=== PATIENT | male | born 1960 | race Caucasian/White ===

== ENCOUNTER → 2016-10-12 | Outpatient (CLI) | payer OTHER ==
[2015-05-30 23:30] VITALS: BP 194/97
[~2016-10-12] MED LIST: AMOX1TAB61 PO; DEXL60CA2 PO; DICL25CA PO; FURO-69 PO; INSU100I13 SQ; IOHEXOL 240 MG/ML 50ML VIAL. PO ONE; IOHEXOL 300 MG/ML 100ML VIAL. IV ONE; LORA1TAB PO; SERT100T PO; TIZA4CAP3 PO; VALS1TAB14 PO
--- NOTE | 2016-10-12 10:17 | KCIC ---
PQRS Compliance Statement: One or more of the following individualized dose reduction techniques were utilized for this examination: 1. Automated exposure control 2. Adjustment of the mA and/or kV according to patient size 3. Use of iterative reconstruction technique CT ABD PELV W/ORAL IV CONTRAST Clinical Indication: Diarrhea, abdominal pain x4 days. History of pancreatitis. Comparison: CT abdomen and pelvis with contrast the tumor 2013. Technique: Helical CT imaging of the abdomen and pelvis is performed after 100 cc Omnipaque 300 IV contrast. Oral contrast also given. Findings: Lung bases are clear. Cardiac size normal. Mild hepatosplenomegaly. Supraumbilical ventral hernia mesh. Gallbladder, pancreas, adrenal glands, abdominal aorta, and kidneys are normal. Stomach unremarkable. No dilated small bowel. No colon wall thickening. No secondary signs of appendicitis. Unchanged from prior study there is mild haziness of the central mesentery with several upper limits of normal in size mesenteric lymph nodes. No abdominal or pelvic free fluid. Urinary bladder is normal. Prostate size normal. Tiny fat-containing left inguinal hernia. No acute bone abnormality. IMPRESSION: 1. No acute abdominal or pelvic abnormality. 2. Similar appearance of haziness of the central mesentery with scattered mesenteric lymph nodes. Finding can be incidental. Other considerations include sclerosing mesenteritis or sequela of prior pancreatitis or peritonitis. 3. Mild hepatosplenomegaly. Electronically signed by: Carlos Zavala MD (10/12/2016 10:14 AM)
== END | disposition home or self-care (01) ==
LOC: KCIC CT 08:01
PROVIDERS: ATTEND Family Medicine
DX: R16.2 Hepatomegaly with splenomegaly, not elsewhere classified (principal); I10 Essential (primary) hypertension; F17.200 Nicotine dependence, unspecified, uncomplicated; E11.9 Type 2 diabetes mellitus without complications
CPT/HCPCS: 74177; 82565; Q9966; Q9967

== ENCOUNTER 2016-12-09 01:22 | Emergency (ER) | payer OTHER ==
[~2016-12-09] VITALS: Ht 172.7 cm; Wt 133.8 kg
[~2016-12-09 01:22] MED LIST changes: -IOHEXOL 240 MG/ML 50ML VIAL. PO ONE; -IOHEXOL 300 MG/ML 100ML VIAL. IV ONE
[2016-12-09] MEDS ORDERED: IV NORMAL SALINE 1000ML BAG 1,000 ML IV SCH (01:30)
--- NOTE | 2016-12-09 01:38 | PHYS DOC ---
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 He states he is feeling fine today and then at 1800 p.m. he developed right flank pain. It has been constant. It's at least a 7 on a pain scale. He notes his urine was darker today. He has had 4-5 moderately formed stools, no blood. No fevers. Pain is been constant still sometimes radiate to the right lower abdomen. No testicular pain or swelling. No nausea or vomiting. Denies any recent heavy lifting or trauma. Said no recent travel. No old records available here. Review of Systems Review of Systems Constitutional: Denies fever or chills Eyes: Denies change in visual acuity, redness, or eye pain HENT: Denies nasal congestion or sore throat Respiratory: Denies cough or shortness of breath Cardiovascular: No chest pain. GI: see HPI : Denies dysuria or hematuria but urine darker today Musculoskeletal: right back pain Integument: Denies rash or skin lesions Neurologic: Denies headache, focal weakness or sensory changes Current Medications Current Medications Current Medications Medications (Trade) Dose Ordered Sig/Charlie Start Time Stop Time Status Last Admin Dose Admin Hydromorphone HCl (Dilaudid) 1 mg PRN Q15MIN PRN 12/09/16 01:30 12/10/16 01:29 12/09/16 02:10 1 MG Ondansetron HCl (Zofran) 4 mg PRN Q6HRS PRN 12/09/16 01:45 12/09/16 01:48 4 MG Sodium Chloride 1,000 ml @ 1,000 mls/hr Q1H 12/09/16 01:30 12/09/16 02:29 DC 12/09/16 02:38 1,000 MLS/HR Allergies Allergies Allergies Coded Allergies Type Severity Reaction Last Updated Verified cephalexin Allergy Mild HIVES 12/09/16 Yes Physical Exam Physical Exam Constitutional: Well developed, well nourished, no acute distress, non-toxic appearance. He is yelling out with spasms of pain. He drove himself here. HENT: Normocephalic, atraumatic, bilateral external ears normal, oropharynx moist, no oral exudates, nose normal. Eyes: PERRLA, EOMI, conjunctiva normal, no discharge. Neck: Normal range of motion, no tenderness, supple, no stridor. Cardiovascular:Heart rate regular rhythm, no murmur Lungs & Thorax: Bilateral breath sounds clear to auscultation Abdomen: Bowel sounds normal, soft, no tenderness, no masses, no pulsatile masses. Skin: Warm, dry, no erythema, no rash. Back: No tenderness, no CVA tenderness. Nontender over flank area. Extremities: No tenderness, no cyanosis, no clubbing, ROM intact, no edema. Neurologic: Alert and oriented X 3, normal motor function, normal sensory function, no focal deficits noted. [] Psychologic: Affect normal, judgement normal, mood normal. Current Patient Data Vital Signs Vital Signs Date Time Temp Pulse Resp B/P (MAP) Pulse Ox O2 Delivery O2 Flow Rate FiO2 12/09/16 02:37 20 96 Room Air 12/09/16 01:31 98.6 68 172/109 (130) 98.6 Lab Values Laboratory Tests Test 12/09/16 01:34 White Blood Count 10.7 x10^3/uL (4.0-11.0) Red Blood Count 5.77 x10^6/uL (4.30-5.70) H Hemoglobin 15.1 g/dL (13.0-17.5) Hematocrit 46.0 % (39.0-53.0) Mean Corpuscular Volume 80 fL (79-100) Mean Corpuscular Hemoglobin 26 pg (25-35) Mean Corpuscular Hemoglobin Concent 33 g/dL (31-37) Red Cell Distribution Width 15.9 % (11.5-14.5) H Platelet Count 230 x10^3/uL (140-400) Neutrophils (%) (Auto) 64 % (31-73) Lymphocytes (%) (Auto) 24 % (24-48) Monocytes (%) (Auto) 8 % (0-9) Eosinophils (%) (Auto) 3 % (0-3) Basophils (%) (Auto) 1 % (0-3) Neutrophils # (Auto) 6.9 x10^3uL (1.8-7.7) Lymphocytes # (Auto) 2.6 x10^3/uL (1.0-4.8) Monocytes # (Auto) 0.9 x10^3/uL (0.0-1.1) Eosinophils # (Auto) 0.3 x10^3/uL (0.0-0.7) Basophils # (Auto) 0.1 x10^3/uL (0.0-0.2) Sodium Level 140 mmol/L (136-145) Potassium Level 4.2 mmol/L (3.5-5.1) Chloride Level 101 mmol/L (98-107) Carbon Dioxide Level 33 mmol/L (21-32) H Anion Gap 6 (6-14) Blood Urea Nitrogen 25 mg/dL (8-26) Creatinine 1.2 mg/dL (0.7-1.3) Estimated GFR (Cockcroft-Gault) 62.2 BUN/Creatinine Ratio 21 (6-20) H Glucose Level 184 mg/dL (70-99) H Calcium Level 9.3 mg/dL (8.5-10.1) Total Bilirubin 0.2 mg/dL (0.2-1.0) Aspartate Amino Transferase (AST) 18 U/L (15-37) Alanine Aminotransferase (ALT) 31 U/L (16-63) Alkaline Phosphatase 73 U/L (46-116) Total Protein 7.4 g/dL (6.4-8.2) Albumin 3.9 g/dL (3.4-5.0) Albumin/Globulin Ratio 1.1 (1.0-1.7) Laboratory Tests 12/09/16 01:34 Laboratory Tests 12/09/16 01:34 Radiology/Procedures Radiology[facility]ced[facility] [address] [place], [place] [id number] IMAGING REPORT Signed PATIENT: JOSE CHAPA ACCOUNT: [id number] : 1960 LOCATION: ER AGE: 56 SEX: M EXAM STATUS: REG ER ORD. PHYSICIAN: ROBERTO WILSON MD REASON: RT FLANK PAIN W H/O KIDNEY STONES PROCEDURE: CT ABDOMEN PELVIS WO CONTRAST EXAM: Abdomen and pelvis CT without intravenous contrast. HISTORY: 56-year-old male with right flank pain, history of kidney stones. TECHNIQUE: Computed tomographic images of the abdomen and pelvis were obtained without contrast. Multiplanar reformatting was performed. PQRS compliance statement: One or more of the following individualized dose reduction techniques were utilized for this examination: 1. Automated exposure control 2. Adjustment of the mA and/or kV according to patient size 3. Use of iterative reconstruction technique COMPARISON: None available. FINDINGS: The lung bases demonstrate no acute finding. Detailed evaluation of the intra-abdominal and pelvic organs and vascular structures is limited secondary to lack of IV contrast. Within these limitations, the liver, spleen, gallbladder, pancreas, adrenal glands and bilateral kidneys demonstrate no focal abnormality. Specifically, no urolithiasis or hydronephrosis is seen. The GI tract demonstrates no dilated bowel loops to suggest obstruction. No focal bowel wall thickening is seen involving the small nor large bowel loops. The appendix is not visualized extending off the cecum. No inflammatory changes seen in the region. The urinary bladder is grossly unremarkable. Prostate is normal in size with calcifications present No intra-abdominal or pelvic free fluid, free air or significant lymphadenopathy is seen. There is mild haziness of the mesentery within the left upper and mid abdomen along the midline, with corresponding small mesenteric lymph nodes present. Aorta is normal in caliber. Overlying soft tissues and visualized osseous structures demonstrate no acute or suspicious finding. IMPRESSION: No urolithiasis or hydronephrosis. Mild haziness of the mesentery in the left upper and midabdomen with a few prominent mesenteric lymph nodes. These inflammatory findings are nonspecific, may represent mild mesenteritis. Adjacent bowel demonstrates no focal abnormality. Electronically signed by: Candy Coronado MD (12/09/2016 2:30 AM) [facility] DICTATED and SIGNED BY: CANDY CORONADO MD DATE: 12/09/160 CC: ROBERTO WILSON MD; NO PCP ~ Course & Med Decision Making Course & Med Decision Making Evaluated patient upon arrival. IV fluids were established and IV Dilaudid for pain. He is having spasms of pain here; may be kidney stone or just muscle spasms. My differential for abdominal pain includes but is not limited to appendicitis; cholelithiasis or cholecystitis; renal stones; ureterolithiasis; pancreatitis; urinary tract infection; bowel obstruction; irritable bowel. Patient's presentation is consistent with renal colic. Proceed with CT stone protocol. At 0200 am-patient in CT. Lab reviewed.. At 0245 AM: CT results with no acute findings The haziness noted is on the left side and his pain is all right sided. Pain is much improved. He has zanaflex and flexeril at home. He will have his come and drive him home. BP 128/59, P 67 at discharge. I have spoken with the patient and/or caregivers. I have explained the patient' s condition, diagnosis and treatment plan based on the information available to me at this time. I have answered the patient's and/or caregiver's questions and addressed any concerns. The patient and/or caregivers have as good an understanding of the patient's diagnosis, condition and treatment plan as can be expected at this point. The patient's condition is stable and appropriate for discharge from the emergency department. The patient will pursue further outpatient evaluation with the primary care physician or other designated or consulting physician as outlined in the discharge instructions. The patient and/or caregivers are agreeable to this plan of care and follow-up instructions have been explained in detail. The patient and/or caregivers have received these instructions in written format and have expressed an understanding of the discharge instructions. The patient and/or caregivers are aware that any significant change in condition or worsening of symptoms should prompt an immediate return to this or the closest emergency department or a call to 911. Jewell Disclaimer Dragon Disclaimer This electronic medical record was generated, in whole or in part, using a voice recognition dictation system. Departure Departure Impression: Primary Impression: Right flank pain Additional Impression: Spasm of muscle, back Disposition: HOME, SELF-CARE Condition: IMPROVED Patient Instructions: Muscle Strain Scripts Naproxen (NAPROSYN) 500 Mg Tablet 500 MG PO BID for 14 Days, #28 TAB Prov: ROBERTO WILSON MD 12/09/16 Problem Qualifiers ROBERTO WILSON MD Dec 09, 2016 01:38
[2016-12-09 01:42] LABS: BASO # 0.1 x10^3/uL (0.0-0.2); BASO % 1 % (0-3); EOS % 3 % (0-3); HEMOGLOBIN 15.1 g/dL (13.0-17.5); LYMPH # 2.6 x10^3/uL (1.0-4.8); LYMPH % 24 % (24-48); MEAN CORPUSCULAR HEMOGLOBIN 26 pg (25-35); MEAN CORPUSCULAR HGB CONC 33 g/dL (31-37); MEAN CORPUSCULAR VOLUME 80 fL (79-100); MONO % 8 % (0-9); NEUT % 64 % (31-73); PLATELET COUNT 230 x10^3/uL (140-400); RED BLOOD COUNT 5.77 x10^6/uL (4.30-5.70); RED CELL DISTRIBUTION WIDTH 15.9 % (11.5-14.5); WHITE BLOOD COUNT 10.7 x10^3/uL (4.0-11.0)
[2016-12-09] MEDS ORDERED: ONDANSETRON PF 4 MG/2 ML VIAL. IV PRN (01:45)
[2016-12-09] MEDS: HYDROmorphone 2 MG/ML VIAL IV/SQ PRN ×3 (01:47→02:37)
[2016-12-09 01:48] LABS: CALCIUM 9.3 mg/dL (8.5-10.1); CREATININE 1.2 mg/dL (0.7-1.3); GFR 62.2; POTASSIUM 4.2 mmol/L (3.5-5.1)
[2016-12-09 01:54] LABS: ALBUMIN 3.9 g/dL (3.4-5.0); ALBUMIN/GLOBULIN RATIO 1.1 (1.0-1.7); TOTAL BILIRUBIN 0.2 mg/dL (0.2-1.0); TOTAL PROTEIN 7.4 g/dL (6.4-8.2)
--- NOTE | 2016-12-09 02:33 | RAD ---
EXAM: Abdomen and pelvis CT without intravenous contrast. HISTORY: 56-year-old male with right flank pain, history of kidney stones. TECHNIQUE: Computed tomographic images of the abdomen and pelvis were obtained without contrast. Multiplanar reformatting was performed. PQRS compliance statement: One or more of the following individualized dose reduction techniques were utilized for this examination: 1. Automated exposure control 2. Adjustment of the mA and/or kV according to patient size 3. Use of iterative reconstruction technique COMPARISON: None available. FINDINGS: The lung bases demonstrate no acute finding. Detailed evaluation of the intra-abdominal and pelvic organs and vascular structures is limited secondary to lack of IV contrast. Within these limitations, the liver, spleen, gallbladder, pancreas, adrenal glands and bilateral kidneys demonstrate no focal abnormality. Specifically, no urolithiasis or hydronephrosis is seen. The GI tract demonstrates no dilated bowel loops to suggest obstruction. No focal bowel wall thickening is seen involving the small nor large bowel loops. The appendix is not visualized extending off the cecum. No inflammatory changes seen in the region. The urinary bladder is grossly unremarkable. Prostate is normal in size with calcifications present No intra-abdominal or pelvic free fluid, free air or significant lymphadenopathy is seen. There is mild haziness of the mesentery within the left upper and mid abdomen along the midline, with corresponding small mesenteric lymph nodes present. Aorta is normal in caliber. Overlying soft tissues and visualized osseous structures demonstrate no acute or suspicious finding. IMPRESSION: No urolithiasis or hydronephrosis. Mild haziness of the mesentery in the left upper and midabdomen with a few prominent mesenteric lymph nodes. These inflammatory findings are nonspecific, may represent mild mesenteritis. Adjacent bowel demonstrates no focal abnormality. Electronically signed by: Azra Conner MD (12/09/2016 2:30 AM) [facility]
[2016-12-09 02:39] LABS: BILIRUBIN,URINE NEGATIVE (NEG); GLUCOSE,URINE >=1000 mg/dL (NEG); NITRITE,URINE NEGATIVE (NEG); PH,URINE 5.5; PROTEIN,URINE NEGATIVE (NEG-TRACE); UROBILINOGEN,URINE 0.2 mg/dL (0.2 mg/dL)
[2016-12-09] MEDS ORDERED: ORPHENADRINE CITRATE 60 MG/2 ML VIAL. IM ONE (02:45)
[2016-12-09] MEDS ORDERED: KETOROLAC TROMETHAMINE 30 MG/ML INJ. IV ONE (02:45)
[2016-12-09 02:48] LABS: BACTERIA,URINE 0 /HPF (0-FEW); RBC,URINE 0 /HPF (0-2); SQUAMOUS EPITHELIAL CELL,UR OCC /LPF; WBC,URINE 0 /HPF (0-4)
[2016-12-09] MEDS ORDERED: NAPR500T PO (02:48)
[2016-12-09 03:14] VITALS: BP 168/94
[2016-12-10] MEDS ORDERED: INSU100C SQ (01:06)
[2016-12-10] MEDS ORDERED: zoloft (01:06)
[2016-12-10] MEDS ORDERED: diovan (01:06)
[2016-12-10] MEDS ORDERED: prilosec PO (01:06)
[2016-12-10] MEDS ORDERED: CANA300T PO (01:06)
[2016-12-10] MEDS ORDERED: INSU100I13 SQ (01:06)
[2016-12-10] MEDS ORDERED: OMEP40CA5 PO (13:37)
[2016-12-10] MEDS ORDERED: GABA-587 PO (13:37)
[2016-12-10] MEDS ORDERED: MORP30TA3 PO (13:37)
[2016-12-10] MEDS ORDERED: SERT100T PO (13:37)
[2016-12-10] MEDS ORDERED: VALS1TAB22 PO (13:37)
[2016-12-10] MEDS ORDERED: INSU100I32 SQ (13:37)
== END 2016-12-09 03:14 | disposition home or self-care (01) ==
LOC: ER 01:22 → MERGE 01:22 → ER 03:14
DX: R10.9 Unspecified abdominal pain (principal); M62.830 Muscle spasm of back; E11.9 Type 2 diabetes mellitus without complications; I10 Essential (primary) hypertension; Z87.442 Personal history of urinary calculi; F17.210 Nicotine dependence, cigarettes, uncomplicated; Z88.1 Allergy status to other antibiotic agents
CPT/HCPCS: 36415; 74176; 80053; 81001; 85025; 96361; 96372; 96374; 96375; 96376; 99285; J1170; J1885; J2360; J2405; J7030

== ENCOUNTER → 2018-06-18 | Outpatient (CLI) | payer OTHER ==
[2018-05-19 13:20] VITALS: BP 193/78
[~2018-06-18] MED LIST changes: +CANA300T PO; +GABA-689 PO; +INSU100C SQ; +INSU100I32 SQ; +MORP30TA3 PO; +NAPR-683 PO; +OMEP40CA5 PO; +VALS1TAB22 PO; +diovan; +prilosec PO; +zoloft
--- NOTE | 2018-06-18 15:18 | KCIC ---
EXAM: Lumbar spine MRI without contrast. HISTORY: Fall. TECHNIQUE: Multiplanar, multisequence magnetic resonance imaging of the lumbar spine was performed without contrast. COMPARISON: Radiographs dated 05/19/2018. Note is made that the report from the lumbar spine MRI performed 09/12/2009 is available. However, the images corresponding with this report are not available at the time of dictation. FINDINGS: There is a transitional lumbosacral segment. This is considered a partially sacralized L6 segment with rudimentary L6-S1 disc for this dictation. The vertebral amin are normal in height. There is degenerative endplate remodeling and disc space narrowing at L5 to L6. There is slight disc desiccation at L4-L5 and L6-S1. No suspicious osseous lesion is seen. There is no acute or subacute fracture. The conus terminates at L1. At L1-L2, there is no stenosis. At L2-L3, there is mild bilateral facet arthropathy. There is no stenosis. At L3-L4, there is a minimal shallow broad-based left foraminal to extra foraminal disc protrusion superimposed on a disc bulge. There is near abutment of the exiting left L3 nerve root without significant stenosis. At L4-L5, there is a disc bulge. There is no stenosis. At L5-L6, there is a broad-based right paracentral to foraminal disc protrusion with right paracentral and foraminal annular tears superimposed on a right lateral predominant disc bulge and endplate remodeling. There is mild right facet arthropathy. There is minimal right foraminal stenosis. IMPRESSION: 1. Transitional lumbosacral segment. This is considered a partially sacralized L6 segment for this dictation. 2. Multilevel degenerative change within the lumbar spine, described in detail above. 3. No acute finding. Electronically signed by: Gina Zazueta MD (06/18/2018 3:14 PM) [facility]
== END | disposition home or self-care (01) ==
LOC: KCIC MRI 13:22
PROVIDERS: ATTEND Family Medicine
DX: M47.896 Other spondylosis, lumbar region (principal); M12.88 Other specific arthropathies, not elsewhere classified, other specified site; M51.26 Other intervertebral disc displacement, lumbar region; M48.061 Spinal stenosis, lumbar region without neurogenic claudication; W00.0XXD Fall on same level due to ice and snow, subsequent encounter
CPT/HCPCS: 72148

== ENCOUNTER → 2020-08-21 | Day surgery (SDC) | payer OTHER ==
[~2020-08-21] MED LIST changes: +HYDR-2765 PO; +LIDOCAINE 1% Multi-Dose 20 ML VIAL. INJ ONE; +LIDOCAINE 1%/EPI 1:100,000 20 ML VIAL. INJ ONE; +MORP-16 PO; -MORP30TA3 PO; -OMEP40CA5 PO; +OMEP40CA7 PO; -VALS1TAB22 PO; +VALS1TAB23 PO
[2020-08-21 10:29] VITALS: BP 154/84
--- NOTE | 2020-08-21 11:24 | PDOC1 ---
History and Physical Date of Admission Date of Admission DATE: 08/21/20 TIME: 11:21 Identification/Chief Complaint Chief Complaint Subcutaneous mass right chest painful Source Source: Patient History of Present Illness History of Present Illness 60-year-old male with complaints of a painful lump on his right chest ultrasound of this area is consistent with lipoma Past Medical History Cardiovascular: HTN, Hyperlipidemia Pulmonary: No pertinent hx CENTRAL NERVOUS SYSTEM: Carpal Tunnel Syndrome GI: GERD, Other (Pancreatitis) Heme/Onc: Cancer (Sarcoid) Hepatobiliary: No pertinent hx Psych: No pertinent hx Musculoskeletal: low back pain Rheumatologic: No pertinent hx Infectious disease: No pertinent hx ENT: No pertinent hx Renal/: No pertinent hx Endocrine: No pertinent hx Dermatology: No pertinent hx Past Surgical History Past Surgical History: Hernia Repair, Tonsillectomy, Other (Rotator cuff enrico enrrique) Family History Family History: No Significant Social History Smoke: No ALCOHOL: none Drugs: None Current Medications Current Medications Current Medications Lidocaine/ Epinephrine (LIDOCAINE 1%-EPI 1:100,000 Multi-Dose) 20 ml 1X ONCE INJ ; Start 08/21/20 at 10:30; Stop 08/21/20 at 10:31; Status DC Active Scripts Active Reported Hydrocodone-Apap 7.5-325 (Hydrocodone Bit/Acetaminophen) 1 Tab Tablet 1 Tab PO PRN Q6HRS PRN Morphine Sulfate Er (Morphine Sulfate) 30 Mg Tablet.er 30 Mg PO QID Omeprazole 40 Mg Capsule.dr 1 Cap PO DAILY Zoloft (Sertraline Hcl) 100 Mg Tablet 1 Tab PO DAILY Lantus Solostar (Insulin Glargine,Hum.rec.anlog) 100 Unit/1 Ml Insuln.pen 110 Unit SQ TIDAC Diovan Hct 160-25 Mg Tablet (Valsartan/Hydrochlorothiazide) 1 Each Tablet 1 Tab PO DAILY Allergies Allergies: Coded Allergies: cephalexin (Verified Allergy, Mild, HIVES, 08/21/20) ROS Gastrointestinal: Yes Abdominal Pain Physical Exam General: Alert, Oriented X3, Cooperative, No acute distress HEENT: Atraumatic, EOMI Lungs: Clear to auscultation, Normal air movement Heart: RRR, no murmurs Abdomen: Normal bowel sounds, Soft, No tenderness Skin: Other (Lipomatous lesion right chest) Neuro: Normal speech Vitals Vitals Vital Signs Date Time Temp Pulse Resp B/P (MAP) Pulse Ox O2 Delivery O2 Flow Rate FiO2 08/21/20 10:29 69 20 98 Labs Labs Laboratory Tests Test 08/21/20 10:15 SARS-CoV-2 Antigen (Rapid) Negative (NEGATIVE) Laboratory Tests Test 08/21/20 10:15 SARS-CoV-2 Antigen (Rapid) Negative (NEGATIVE) VTE Prophylaxis Ordered VTE Prophylaxis Devices: Yes VTE Pharmacological Prophylaxi: Contraindicated Assessment/Plan Assessment/Plan Mass right chest plan excision Justifications for Admission Other Justification SHELTON AMBROSIO MD August 21, 2020 11:24
--- NOTE | 2020-08-21 11:26 | PDOC4 ---
Operative Note Operative Note Date: August 21, 2020 at 1124 Preoperative diagnosis: Right chest mass Postoperative diagnosis: Same Procedure: Excision of mass Surgeon: Yobani Specimen: Mass Dictation: Patient is a 60-year-old male is complained of a painful bulge in his right chest procedure of excision was explained to the patient detail was benefits were also discussed including bleeding infection alternatives to this procedure also discussed with the patient who seemed to understand and gave both verbal and written consent to have the procedure performed. Patient was taken the minors room placed in the supine position the area over the mass was prepped and draped usual sterile fashion using ChloraPrep. Area over the mass was injected with 1% lidocaine with epinephrine incision was made with 15 blade scalpel is carried down through subcutaneous tissue using electrocautery provide hemostasis the mass was sharply excised. To be lipomatous tissue and sent for pathology the size of the mass was 2 cm size of the incision was 3 cm. The wound was closed in 2 layers deep layer running 3-0 Vicryl and skin was reapproximated for subcuticular Monocryl Mastisol Steri-Strips and island dressings were applied. Patient taught procedure well was discharged home in stable condition all sponge instrument needle counts listed as correct estimated blood loss 20 mL SHELTON AMBROSIO MD August 21, 2020 11:26
--- NOTE | 2020-08-21 11:29 | DISCH ---
DISCHARGE INSTRUCTIONS Condition on Discharge Condition on Discharge: Stable Activity After Discharge Activity Instructions for Disc: Activity as tolerated Diet after Discharge Diet after Discharge: Diabetic No Calorie Level Wound Incision Care Other wound/incision instructi: Martha shower in 24 hours Contacting the DRGrecia after DC Call your doctor for: If your condition worsens Follow-Up Follow up with: Dr. Ambrosio in 2 weeks Treatment/Equipment after DC Adaptive Equipment Issued: None SHELTON AMBROSIO MD August 21, 2020 11:29
--- NOTE | 2020-08-25 14:21 | PATHOLOGY ---
[facility] Accession Number: [id number] . 01 Material submitted: . chest - RIGHT CHEST WALL MASS. Modifiers: right . 01 Clinical history: . RIGHT CHEST WALL LIPOMA . 02 Diagnosis: Fibroadipose tissue, right chest wall mass excision: - Lipoma. (JP:workers compensation administrator; 08/25/2020) R 08/25/2020 1053 Local . 02 Comment: There is no evidence of malignancy. (JPM:cassie; 08/25/2020) . 02 Electronically signed: . Shayne Borja MD, Pathologist NPI- [id number] . 01 Gross description: . The specimen is received in formalin, labeled "Matheus Castellon, right chest wall mass". Received is a segment of yellow-riggins lobulated tissue measuring 2.5 x 2.2 x 1.3 cm in greatest dimensions. Sectioning reveals bright yellow, lobulated cut surfaces throughout with no grossly distinct nodules or lesions. The specimen is submitted representatively in cassette A1. ([facility]; 08/24/2020) QA/[facility] 08/24/2020 1512 Local . 02 Pathologist provided ICD-10: D17.1 . 02 CPT . 619864 Specimen Comment: A courtesy copy of this report has been sent to [phone], [phone] Specimen Comment: [id number] Specimen Comment: Report sent to / DR ROBERSON Specimen Comment: A duplicate report has been generated due to demographic updates. Performed at: 01 [facility] [address], [place], [place] [id number] MD Kelvin Stout MD Phone: [phone] Performed at: 02 [facility] [address] [place], [place] [id number] MD Shayne Borja MD Phone: [phone]
== END | disposition home or self-care (01) ==
LOC: SURG 10:07
PROVIDERS: ATTEND Surgery
DX: D17.1 Benign lipomatous neoplasm of skin and subcutaneous tissue of trunk (principal); I10 Essential (primary) hypertension; G47.30 Sleep apnea, unspecified; K21.9 Gastro-esophageal reflux disease without esophagitis; E11.9 Type 2 diabetes mellitus without complications; F41.9 Anxiety disorder, unspecified; F17.210 Nicotine dependence, cigarettes, uncomplicated; Z79.899 Other long term (current) drug therapy; Z98.890 Other specified postprocedural states; Z79.4 Long term (current) use of insulin; Z88.1 Allergy status to other antibiotic agents; Z20.822 Contact with and (suspected) exposure to COVID-19
CPT/HCPCS: 21555; 87426; 88304; J3490; 21552

== ENCOUNTER 2021-06-29 06:33 | Emergency (ER) | payer OTHER ==
[~2021-06-29] VITALS: Ht 172.7 cm; Wt 100.0 kg
[~2021-06-29 06:33] MED LIST changes: -LIDOCAINE 1% Multi-Dose 20 ML VIAL. INJ ONE; -LIDOCAINE 1%/EPI 1:100,000 20 ML VIAL. INJ ONE
[2021-06-29] MEDS ORDERED: BENZONATATE 100 MG CAPSULE. PO ONE (07:00)
[2021-06-29] MEDS ORDERED: ACETAMINOPHEN 500 MG TABLET PO ONE (07:00)
[2021-06-29] MEDS ORDERED: IV NORMAL SALINE 500ML BAG 500 ML IV ONE (07:00)
[2021-06-29] MEDS ORDERED: methylPREDNISolone SOD SUCC PF 125 MG/2 ML VIAL. IV ONE (07:00)
[2021-06-29] MEDS ORDERED: IPRATRPIUM/ALBUTEROL 0.5/2.5MG 3 ML NEBU. NEB ONE (07:00)
[2021-06-29] MEDS ORDERED: ALBUTEROL SULFATE 2.5 MG/3 ML NEBU. NEB ONE (07:00)
--- NOTE | 2021-06-29 07:23 | RAD ---
XR CHEST 1V History: Short of air, cough. Comparison: 12/09/2016 Technique: Portable AP radiograph of the chest. Findings: The lungs are adequately and symmetrically inflated. There is mild increased attenuation of the left greater than right lung bases compared to prior exam. No pleural effusion or pneumothorax. Cardiomedi astinal silhouette and pulmonary vasculature are within normal limits. Osseous structures and soft ti ssues are unremarkable. Impression: 1. Increased attenuation in bilateral lung bases likely relates to body wall attenuation however sup erimposed lower lobe infiltrate is not excluded. Electronically signed by: Brian Clifton MD (06/29/2021 7:21 AM) [id number]
[2021-06-29 07:28] LABS: BASO # 0.1 x10^3/uL (0.0-0.2); BASO % 1 % (0-3); EOS # 0.3 x10^3/uL (0.0-0.7); EOS % 4 % (0-3); HEMATOCRIT 46.3 % (39.0-53.0); HEMOGLOBIN 15.2 g/dL (13.0-17.5); LYMPH # 1.1 x10^3/uL (1.0-4.8); LYMPH % 18 % (24-48); MEAN CORPUSCULAR HEMOGLOBIN 27 pg (25-35); MEAN CORPUSCULAR HGB CONC 33 g/dL (31-37); MEAN CORPUSCULAR VOLUME 83 fL (79-100); MONO # 0.6 x10^3/uL (0.0-1.1); MONO % 9 % (0-9); NEUT # 4.3 x10^3/uL (1.8-7.7); NEUT % 69 % (31-73); PLATELET COUNT 217 x10^3/uL (140-400); RED BLOOD COUNT 5.58 x10^6/uL (4.30-5.70); RED CELL DISTRIBUTION WIDTH 15.7 % (11.5-14.5); WHITE BLOOD COUNT 6.2 x10^3/uL (4.0-11.0)
--- NOTE | 2021-06-29 07:30 | PHYS DOC ---
Past Medical History Past Medical History: Diabetes-Type II, Hypertension, Kidney Stone Additional Past Medical Histor: SLEEP APNEA, SI BULGING DISC Past Surgical History: No Surgical History Additional Past Surgical Histo: Back Pain, Shoulder, Hernia Smoking Status: Current Every Day Smoker Alcohol Use: Occasionally Drug Use: None Adult General Chief Complaint Chief Complaint: SHORTNESS OF BREATH HPI HPI The patient is a 61-year-old male with a history of morbid obesity, hypertension, hyperlipidemia, insulin-dependent diabetes (well controlled; A1c just over 6), continued active tobacco abuse. He has no known diagnosis of COPD but reports a long history of smoking and yearly treatment for episodes of "bronchitis" with steroids and bronchodilators. He is fully vaccinated against COVID. Mr. Castellon presents for evaluation of nasal congestion, rhinorrhea, dry nonproductive cough and shortness of breath with onset last evening. Wheezing during initial evaluation here in the emergency department; oxygen saturation appropriate on room air and speaking comfortably in full sentences. Has a near fever here. Patient denies vomiting, chest pain of any kind, abdominal pain of any kind, flank pain, midline back pain, dysuria, hematuria, polyuria or oliguria, changes in bowel habits, pain or swelling to arms or legs. Vital signs are appropriate here aside from near fever and somewhat elevated blood pressure and the patient is in no acute distress. Review of Systems Review of Systems A 12 point review of systems was completed and was negative except where noted in HPI above. Current Medications Current Medications Current Medications Medications (Trade) Dose Ordered Sig/Charlie Start Time Stop Time Status Last Admin Dose Admin Acetaminophen (Tylenol) 1,000 mg 1X ONCE 06/29/21 07:00 06/29/21 07:01 DC 06/29/21 07:33 1,000 MG Albuterol Sulfate (Ventolin Neb Soln) 2.5 mg 1X ONCE 06/29/21 07:00 06/29/21 07:01 DC 06/29/21 07:17 2.5 MG Albuterol/ Ipratropium (Duoneb) 3 ml 1X ONCE 06/29/21 07:00 06/29/21 07:01 DC 06/29/21 07:17 3 ML Benzonatate (Tessalon Perle) 200 mg 1X ONCE 06/29/21 07:00 06/29/21 07:01 DC 06/29/21 07:33 200 MG Methylprednisolone Sodium Succinate (SOLU-Medrol 125MG VIAL) 125 mg 1X ONCE 06/29/21 07:00 06/29/21 07:01 DC 06/29/21 07:32 125 MG Sodium Chloride 500 ml @ 500 mls/hr 1X ONCE 06/29/21 07:00 06/29/21 07:59 DC 06/29/21 07:37 500 MLS/HR Allergies Allergies Allergies Coded Allergies Type Severity Reaction Last Updated Verified cephalexin Allergy Mild HIVES 08/21/20 Yes Physical Exam Physical Exam 61-year-old male appearing nontoxic and in no acute distress. Head is normocephalic and atraumatic. Neck is supple and nontender. No JVD. Oropharynx is moist. Lungs with good air movement bilaterally but wheezes heard to all sapp. No crackles or other adventitious sounds heard. No tachypnea. There is a normal S1 and S2 without rubs or gallops and capillary refill is appropriate, less than 2 seconds globally. Abdomen is soft, nontender and nondistended without pulsatile mass. Skin is warm and dry without cyanosis, clubbing or edema. Psychiatrically, the patient demonstrates appropriate mood and affect and is alert. Evaluation of the extremities reveals BUEs and BLEs neurovascularly intact distally with strength 5 out of 5, sensation intact light touch in all nerve distributions, radial, DP and PT pulses 2+ and equal bilaterally, capillary refill less than 2 seconds, hands and feet warm and well- perfused. No dependent peripheral edema distally. No calf tenderness or swelling bilaterally. Ronda's test is negative bilaterally. Current Patient Data Vital Signs Vital Signs Date Time Temp Pulse Resp B/P (MAP) Pulse Ox O2 Delivery O2 Flow Rate FiO2 06/29/21 07:26 Room Air 06/29/21 07:20 97 06/29/21 07:16 100.3 73 25 124/57 (79) 100.3 Lab Values Laboratory Tests Test 06/29/21 07:06 06/29/21 07:15 White Blood Count 6.2 x10^3/uL (4.0-11.0) Red Blood Count 5.58 x10^6/uL (4.30-5.70) Hemoglobin 15.2 g/dL (13.0-17.5) Hematocrit 46.3 % (39.0-53.0) Mean Corpuscular Volume 83 fL (79-100) Mean Corpuscular Hemoglobin 27 pg (25-35) Mean Corpuscular Hemoglobin Concent 33 g/dL (31-37) Red Cell Distribution Width 15.7 % (11.5-14.5) H Platelet Count 217 x10^3/uL (140-400) Neutrophils (%) (Auto) 69 % (31-73) Lymphocytes (%) (Auto) 18 % (24-48) L Monocytes (%) (Auto) 9 % (0-9) Eosinophils (%) (Auto) 4 % (0-3) H Basophils (%) (Auto) 1 % (0-3) Neutrophils # (Auto) 4.3 x10^3/uL (1.8-7.7) Lymphocytes # (Auto) 1.1 x10^3/uL (1.0-4.8) Monocytes # (Auto) 0.6 x10^3/uL (0.0-1.1) Eosinophils # (Auto) 0.3 x10^3/uL (0.0-0.7) Basophils # (Auto) 0.1 x10^3/uL (0.0-0.2) Prothrombin Time 13.8 SEC (11.7-14.0) Prothrombin Time INR 1.1 (0.8-1.1) Activated Partial Thromboplast Time 30 SEC (24-38) Sodium Level 144 mmol/L (136-145) Potassium Level 3.8 mmol/L (3.5-5.1) Chloride Level 105 mmol/L (98-107) Carbon Dioxide Level 30 mmol/L (21-32) Anion Gap 9 (6-14) Blood Urea Nitrogen 17 mg/dL (8-26) Creatinine 0.8 mg/dL (0.7-1.3) Estimated GFR (Cockcroft-Gault) 97.6 BUN/Creatinine Ratio 21 (6-20) H Glucose Level 148 mg/dL (70-99) H Lactic Acid Level 1.3 mmol/L (0.4-2.0) Calcium Level 8.8 mg/dL (8.5-10.1) Total Bilirubin 0.3 mg/dL (0.2-1.0) Aspartate Amino Transferase (AST) 20 U/L (15-37) Alanine Aminotransferase (ALT) 32 U/L (16-63) Alkaline Phosphatase 53 U/L (46-116) Troponin I High Sensitivity 7 ng/L (4-75) FB-Ean-T-Type Natriuretic Peptide 73 pg/mL (0-124) Total Protein 7.5 g/dL (6.4-8.2) Albumin 3.7 g/dL (3.4-5.0) Albumin/Globulin Ratio 1.0 (1.0-1.7) Influenza Type A Antigen Negative (NEGATIVE) Influenza Type B Antigen Negative (NEGATIVE) SARS-CoV-2 Antigen (Rapid) Negative (NEGATIVE) Laboratory Tests 06/29/21 07:06 Laboratory Tests 06/29/21 07:06 EKG EKG Sinus rhythm, rate 70, no acute ST elevation or depression, CT 162, QRS 78, QTc 537, EP interpretation. Nonischemic tracing, mildly prolonged QT. Radiology/Procedures Radiology/Procedures XR CHEST 1V History: Short of air, cough. Comparison: 12/09/2016 Technique: Portable AP radiograph of the chest. Findings: The lungs are adequately and symmetrically inflated. There is mild increased attenuation of the left greater than right lung bases compared to prior exam. No pleural effusion or pneumothorax. Cardiomediastinal silhouette and pulmonary vasculature are within normal limits. Osseous structures and soft tissues are unremarkable. Impression: 1. Increased attenuation in bilateral lung bases likely relates to body wall attenuation however superimposed lower lobe infiltrate is not excluded. Electronically signed by: Brian Ashford MD (06/29/2021 7:21 AM) [id number] DICTATED and SIGNED BY: BRIAN ASHFORD MD DATE: 06/29/21 [id number] Course & Med Decision Making Course & Med Decision Making Likely COPD exacerbation in the setting of a viral upper respiratory illness. Will check studies as noted, give bronchodilators and IV steroids and will then reevaluate. Patient is nontoxic and with normal oxygenation on room air. Feel that if he is symptomatically improved that he will likely be a good candidate for discharge home with necessary medications to follow-up very closely with primary care. Patient understands and agrees with this plan of care. 0805: Work-up as above is unremarkable and reassuring. Patient is resting comfortably in no acute distress on serial reassessments. Oxygen saturations are in the mid 90s on room air. Upon reassessment patient states that he feels much, much better. Reports that breathing is back to normal. He is no longer wheezing on auscultation and lungs are clear. He is ambulatory with a narrow, steady gait here in the emergency department without dyspnea. In view of reassuring work-up and dramatic improvement in symptoms, will plan for discharge home with a steroid burst, an albuterol inhaler and a course of doxycycline. Patient understands that if he feels worse instead of better or develops other new symptoms of concern that he should return to the emergency department immediately for reevaluation. All questions are answered. Will refer to pulmonary medicine for outpatient follow-up given the long tobacco use history and recurrent episodes which likely reflect COPD exacerbations. Dragon Disclaimer Dragon Disclaimer This electronic medical record was generated, in whole or in part, using a voice recognition dictation system. Departure Departure Impression: Primary Impression: Upper respiratory infection, viral Additional Impression: COPD with exacerbation Disposition: 01 HOME / SELF CARE / HOMELESS Condition: IMPROVED Referrals: MALIK ROBERSON DO (PCP) FRANCISCO J MORENO MD Patient Instructions: Chronic Obstructive Pulmonary Disease Exacerbation, Upper Respiratory Infection, Adult Additional Instructions: Follow-up very closely with your primary care doctor in the office in the next 2 to 3 days for a reevaluation of your symptoms and a discussion of next best steps in care. Take the prednisone steroids daily for the next 5 days and use the albuterol inhaler every 4 hours (2 puffs) as needed for cough, wheezing, and/or shortness of breath. Take the doxycycline antibiotic twice a day for the next 7 days. You may take Tylenol as needed for discomfort and/or fever. Get plenty of rest. Return to the emergency department right away for worsening symptoms of any kind or with any other new symptoms of concern. We are referring you to our gradall operator (our lung doctor) Dr. Moreno for further evaluation of your recurrent difficulties with breathing when you develop upper respiratory infections. Please call to make an appointment to be seen by him in the office in the next 1 to 2 weeks. Scripts Doxycycline Hyclate (DOXYCYCLINE HYCLATE) 100 Mg Capsule 1 CAP PO BID for 7 Days, #14 CAP Prov: LIZANDRO GARCIA MD 06/29/21 Prednisone (PREDNISONE) 50 Mg Tablet 1 TAB PO DAILY, #5 TAB Prov: LIZANDRO GARCIA MD 06/29/21 Albuterol Sulfate (VENTOLIN HFA INHALER) 18 Gm Hfa.aer.ad 2 PUFF INH Q4HRS PRN for soa/cough/wheezing, #1 INHALER 1 Refill Prov: LIZANDRO GARCIA MD 06/29/21 Problem Qualifiers LIZANDRO GARCIA MD Jun 29, 2021 07:30
--- NOTE | 2021-06-29 07:39 | EKG ---
[facility] [address] [place] [address] Test Date: 2021-06-29 Test Time: 07:06:02 Pat Name: JOSE CHAPA Department: Room: Gender: M Clock Maker: : 1960 Requested By: LIZANDRO GARCIA Order Number: [id number] Reading MD: Measurements Intervals [place] Rate: 70 P: 58 WI: 162 QRS: 33 QRSD: 78 T: 39 QT: 494 QTc: 537 Interpretive Statements SINUS RHYTHM PROLONGED QT NO SPECIFIC ECG ABNORMALITIES RI6.02 No previous ECG available for comparison
[2021-06-29 07:41] LABS: PROTHROMBIN TIME PATIENT 13.8 SEC (11.7-14.0)
[2021-06-29 07:44] LABS: CALCIUM 8.8 mg/dL (8.5-10.1); CREATININE 0.8 mg/dL (0.7-1.3); GFR 97.6; POTASSIUM 3.8 mmol/L (3.5-5.1)
[2021-06-29 07:49] LABS: INFLUENZA A PATIENT NEGATIVE (NEGATIVE); INFLUENZA B PATIENT NEGATIVE (NEGATIVE)
[2021-06-29 07:53] LABS: ALBUMIN 3.7 g/dL (3.4-5.0); TOTAL BILIRUBIN 0.3 mg/dL (0.2-1.0); TOTAL PROTEIN 7.5 g/dL (6.4-8.2)
[2021-06-29 08:13] VITALS: BP 157/68
[2021-06-29] MEDS ORDERED: VENTOLIN HFA18 GM INH (08:13)
[2021-06-29] MEDS ORDERED: DOXY100C3 PO (08:13)
[2021-06-29] MEDS ORDERED: PRED50TA PO (08:13)
== END 2021-06-29 08:21 | disposition home or self-care (01) ==
LOC: ER 06:33
DX: J06.9 Acute upper respiratory infection, unspecified (principal); B97.89 Other viral agents as the cause of diseases classified elsewhere; J44.1 Chronic obstructive pulmonary disease with (acute) exacerbation; E11.9 Type 2 diabetes mellitus without complications; I10 Essential (primary) hypertension; F17.200 Nicotine dependence, unspecified, uncomplicated; E66.01 Morbid (severe) obesity due to excess calories; Z68.33 Body mass index [BMI] 33.0-33.9, adult
CPT/HCPCS: 36415; 71045; 80053; 83605; 83880; 84145; 84484; 85025; 85610; 85730; 87040; 87428; 93005; 94640; 96361; 96374; 99285; J2930; J7040; J7613